=== PATIENT | male | born 1930 | race Hispanic/Latino ===

== ENCOUNTER 2017-12-18 21:14 | Emergency (ER) | payer MEDICARE, BC ==
[2017-12-18 21:32] VITALS: BMI 33.2
[2017-12-18 21:38] VITALS: RESP 18; TEMP 98
[2017-12-18] MEDS ORDERED: TDAP Vaccine 0.5 mL Syr IM ONE (21:48)
--- NOTE | 2017-12-18 21:59 | ED PDOC ---
Arrival/HPI - General Chief Complaint: Trauma Time Seen by Provider: 12/18/17 21:48 Historian: Patient - History of Present Illness Narrative History of Present Illness (Text): 12/18/17 21:50 87 year old male, whose past medical history includes, CAD, VA, and HTN, presents to the emergency department complaining of left shoulder pain s/p fall. Patient was walking up the stairs when he missed a step and fell. Patient states he hit his head, but denies any loss of consciousness. Patient denies any fever, chills, chest pain, shortness of breath, abdominal pain, nausea, vomiting, diarrhea, back pain, neck pain, dizziness, headache, or any other complaints. Time/Duration: Prior to Arrival Symptom Onset: Sudden Activities at Onset: Light Context: Tripped Past Medical History - Provider Review Nursing Documentation Reviewed: Yes - Infectious Disease Hx of Infectious Diseases: None - Tetanus Immunization Tetanus Immunization: Unknown - Cardiac Hx Cardiac Disorders: Yes Hx Angina: Yes Hx Hypertension: Yes - Pulmonary Hx Respiratory Disorders: Yes Hx Pneumonia: Yes (1945) - Neurological Hx Neurological Disorder: No - HEENT Hx HEENT Disorder: No - Renal Hx Renal Disorder: No - Endocrine/Metabolic Hx Endocrine Disorders: No - Hematological/Oncological Hx Blood Disorders: Yes Hx Cancer: Yes (prostate) - Integumentary Hx Dermatological Disorder: Yes Hx Squamous Cell Carcinoma: Yes (2001) - Musculoskeletal/Rheumatological Hx Musculoskeletal Disorders: No - Gastrointestinal Hx Gastrointestinal Disorders: No - Genitourinary/Gynecological Hx Genitourinary Disorders: Yes Hx Prostate Problems: Yes - Psychiatric Hx Psychophysiologic Disorder: No Hx Substance Use: No - Surgical History Hx Cardiac Catheterization: Yes Hx Coronary Stent: Yes Hx Open Heart Surgery: Yes - Suicidal Assessment Feels Threatened In Home Enviroment: No Family/Social History - Physician Review Nursing Documentation Reviewed: Yes Family/Social History: No Known Family HX Smoking Status: Never Smoked Hx Alcohol Use: No Hx Substance Use: No Hx Substance Use Treatment: No Allergies/Home Meds Allergies/Adverse Reactions: Allergies No Known Allergies Allergy (Verified 07/15/12 17:14) Home Medications: Home Meds Medication Instructions Recorded Confirmed Acetaminophen/Tramadol [place] 1 tab PO Q6 PRN 07/15/12 07/15/12 [Tramadol HCl-Acetaminophen 325 mg-37.5 mg] Amlodipine Besylate [Norvasc] 5 mg PO DAILY 07/15/12 07/15/12 Amoxicillin/Clavulanate [place] 1 tab PO BID 07/15/12 07/15/12 [Amoxicillin/Clavulanate Potassium 875 mg-125 ] Aspirin [Aspirin Children's] 81 mg PO DAILY 07/15/12 07/15/12 Folic Acid 1 mg PO DAILY 07/15/12 07/15/12 Lisinopril 10 mg PO DAILY 07/15/12 07/15/12 Metoprolol Succinate XL [Toprol XL] 25 mg PO DAILY 07/15/12 07/15/12 Rabeprazole Sodium [Aciphex] 20 mg PO DAILY 07/15/12 07/15/12 Timolol 0.5% Ophth [Timoptic 0.5% 0.5 OP BID 07/15/12 07/15/12 Ophth Soln] Vitamin A/Vitamin D [Vitamin A & D 1 cap PO DAILY 07/15/12 07/15/12 [id number] Iu-400 Iu] Review of Systems - Physician Review All systems were reviewed & negative as marked: Yes - Review of Systems Constitutional: absent: Fevers, Other (Chills) Respiratory: absent: SOB Cardiovascular: absent: Chest Pain Gastrointestinal: absent: Abdominal Pain, Diarrhea, Nausea, Vomiting Musculoskeletal: Other (left shoulder pain). absent: Back Pain, Neck Pain Neurological: absent: Headache, Dizziness Physical Exam - Physical Exam Narrative Physical Exam (Text): Gen: VS reviewed, alert, well developed, well nourished, nontoxic, mild distress. ENT: normal pharynx. Eye: EOMI, PERRL. Neck: no JVD, supple, no adenopathy. CV: regular rate, regular rhythm, no rubs, no murmur, no gallops, S1, S2, pulses equal and strong. Pulm: no distress, clear to auscultation, no wheeze, no rhonchi, breath sounds equal, no rales. Abd: soft, nontender, no guarding, no rebound, no rigidity, normal bowel sounds. Ext: Abrasions to the left shoulder and both knees. Mild swelling and tenderness over the lateral left shoulder over the deltoid area. No bruising or deformity. no edema. Skin: good color, no rash, no cyanosis. Psych: responds appropriately to questions, normal affect. Neuro: oriented x 3, CN2-12 intact grossly, motor intact, sensation intact. Vital Signs Reviewed: Yes Vital Signs Temp Pulse Resp BP Pulse Ox 12/18/17 21:34 98.0 F 60 18 154/81 H 96 Temperature: Afebrile Blood Pressure: Hypertensive Pulse: Regular Respiratory Rate: Normal Appearance: Positive for: Well-Appearing, Non-Toxic, Comfortable Pain Distress: None Mental Status: Positive for: Alert and Oriented X 3 Medical Decision Making ED Course and Treatment: 12/18/17 21:50 Impression: 87 year old male presents complaining of left shoulder pain s/p fall. Plan: -- CT Head w/o contrast -- Boostrix vaccine -- Humerus left x-ray -- Shoulder left x-ray -- Reassess and disposition Progress Notes: 12/19/17 00:25 patient reports pain at the left posterior humerus but there is no bruising, there is no discreet tenderness, patient has good ROM. I informed the patient and son the importance of ortho follow up and to use a sling as needed for sig discomfort. Patient at this time feels as if he does not need sling. - RAD Interpretation Narrative RAD Interpretations (Text): 12/18/17 23:25 EXAM: CT Head w/o IV Contrast Signed: 12/18/17 BY: Naresh Morales M.D. IMPRESSION: No acute intracranial abnormality 12/19/17 00:20 Left humerus and left shoulder x-ray Impression: As read by me, No overt fracture. no dislocation. OA of the left shoulder. Radiology Orders: 12/18/17 21:49 HEAD W/O CONTRAST [CT] Stat HUMERUS LEFT [RAD] Stat SHOULDER LEFT [RAD] Stat Gre Tutor: ED Physician, Radiologist - EKG Interpretation EKG Interpretation (Text): 12/18/17 21:37 EKG shows Sinus Bradycardia at 58 BPM with first degree AV block. Normal QRS. Normal [place]. No acute ST/T wave abnormalities. Interpreted by me. Interpreted by ED Physician: Yes Type: 12 lead EKG - Medication Orders Current Medication Orders: Discontinued Medications Tetanus/Reduced Diphtheria/Acell Pertussis (Boostrix Vaccine Inj) 0.5 ml IM .ONCE ONE Stop: 12/18/17 21:49 - Scribe Statement The provider has reviewed the documentation as recorded by the Faiza Burns Provider Scribe Attestation: All medical record entries made by the [facility] were at my direction and personally dictated by me. I have reviewed the chart and agree that the record accurately reflects my personal performance of the history, physical exam, medical decision making, and the department course for this patient. I have also personally directed, reviewed, and agree with the discharge instructions and disposition. Disposition/Present on Arrival - Present on Arrival Any Indicators Present on Arrival: No History of DVT/PE: No History of Uncontrolled Diabetes: No Urinary Catheter: No History of Decub. Ulcer: No History Surgical Site Infection Following: None - Disposition Have Diagnosis and Disposition been Completed?: Yes Diagnosis: Head injury, Shoulder injury Disposition: HOME/ ROUTINE Disposition Time: 00:30 Patient Plan: Discharge Patient Problems: Current Active Problems Problem Status Onset Head injury Acute Shoulder injury Acute Condition: STABLE Discharge Instructions (ExitCare): Closed Head Injury (DC), Shoulder Pain (DC) Additional Instructions: You must follow up with an orthopedic doctor (preferably within one week). Return for any new or worsening symptoms. WES PETTIT, thank you for letting us take care of you today. Your provider was Andrew Tabares MD and you were treated for head injury and left shoulder injury. The emergency medical care you received today was directed at your acute symptoms. If you were prescribed any medication, please fill it and take as directed. It may take several days for your symptoms to resolve. Return to the Emergency Department if your symptoms worsen, do not improve, or if you have any other problems. Please contact your doctor or call one of the physicians/clinics you have been referred to that are listed on the Patient Visit Information form that is included in your discharge packet. Bring any paperwork you were given at discharge with you along with any medications you are taking to your follow up visit. Our treatment cannot replace ongoing medical care by a primary care provider outside of the emergency department. Thank you for allowing the [facility] team to be part of your care today. If you had an X-Ray or CT scan: A Radiologist will review the ED reading if any change in treatment is needed we will contact you. If you had a blood, urine, or wound culture: It will take several days for the results, if any change in treatment is needed we will contact you. If you had an STI test: It will take 48 hours for the results. Please call after 1 week if you have not heard back. Referrals: Mitch Donahue III, MD [Medical Doctor] - Follow up with primary Forms: [facility] (Spanish)
[2017-12-19 01:43] VITALS: BP 145/78; PULSE 66; O2SAT 100
--- NOTE | 2017-12-19 09:21 | CARD ---
APPROVED REPORT Date of service: 12/18/2017 EKG Measurement Heart [id number] <Conclusion> Sinus bradycardia with 1st degree AV block LAD No change except the rate is slower
--- NOTE | 2017-12-19 09:52 | CT ---
Date of service: 12/18/2017 PROCEDURE: CT HEAD WITHOUT CONTRAST. HISTORY: trauma COMPARISON: None available. TECHNIQUE: Axial computed tomography images were obtained through the head/brain without intravenous contrast. Supplemental Coronal and Sagittal projectections created and reviewed. Radiation dose: Total exam DLP = 1074.06 mGy-cm. This CT exam was performed using one or more of the following dose reduction techniques: Automated exposure control, adjustment of the mA and/or kV according to patient size, and/or use of iterative reconstruction technique. FINDINGS: HEMORRHAGE: No intracranial hemorrhage. BRAIN: No mass effect or edema. Cortical and cerebellar atrophy, periventricular small vessel disease. VENTRICLES: Unremarkable. No hydrocephalus. CALVARIUM: Unremarkable. PARANASAL SINUSES: Unremarkable as visualized. No significant inflammatory changes. MASTOID AIR CELLS: Unremarkable as visualized. No inflammatory changes. OTHER FINDINGS: None. IMPRESSION: No acute intracranial abnormalities. No significant findings to account for the clinical presentation. Concordant results (preliminary interpretation) provided by [facility]. Procedure Completed: 22:23. Preliminary Report: Dictated and Authenticated: 23:15. Final Interpretation: 09:50. December 19, 2017.
--- NOTE | 2017-12-19 10:16 | RAD ---
PROCEDURE: Radiographs of the left humerus. HISTORY: fall, injury COMPARISON: None. FINDINGS: BONES: No acute fractures. SOFT TISSUES: Normal. OTHER FINDINGS: Incompletely visualized degenerative changes left shoulder. IMPRESSION: No acute findings related to/accounting for the clinical presentation. Concordant results with the preliminary interpretation rendered by the emergency department physician procedure.
--- NOTE | 2017-12-19 10:17 | RAD ---
Date of service: 12/18/2017 PROCEDURE: Radiographs of the Left Shoulder HISTORY: fall, injury COMPARISON: No prior. FINDINGS: BONES: Normal. No fracture. JOINTS: Preserved glenohumeral relationship with mild degenerative change, acromioclavicular degenerative change: Mild SOFT TISSUES: Normal. OTHER FINDINGS: None. IMPRESSION: Degenerative changes affecting acromioclavicular joint and glenohumeral joint. No acute findings.
== END 2017-12-19 00:45 | disposition home or self-care (01) ==
LOC: ED 21:14
DX: S09.90XA Unspecified injury of head, initial encounter (principal); S49.92XA Unspecified injury of left shoulder and upper arm, initial encounter; W10.9XXA Fall (on) (from) unspecified stairs and steps, initial encounter; Y92.9 Unspecified place or not applicable; Z23 Encounter for immunization; I10 Essential (primary) hypertension; Z95.5 Presence of coronary angioplasty implant and graft